=== PATIENT | male | born 1965 | race American Indian/Alaskan Native ===

== ENCOUNTER 2018-06-02 16:47 | Emergency (ER) | payer OTHER ==
[2018-06-02 17:07] VITALS: BP 133/70
[2018-06-02] MEDS ORDERED: MOTRIN PO ONE (20:14)
[2018-06-02] MEDS ORDERED: DECADRON IM ONE (20:14)
--- NOTE | 2018-06-02 21:01 | Emergency Department Report ---
Minor Respiratory - HPI Chief Complaint: Upper Respiratory Infection Stated Complaint: NASAL PROBLEM Time Seen by Provider: 06/02/18 20:11 Duration: 11/2 yr Pain Location: Nose Severity: moderate Minor Respiratory: Yes Rhinorrhea, Yes Able to Tolerate Fluids, No Sore Throat, No Ear Pain, No Cough, No Sick Contacts, No Hemoptysis, No Chest Pain, No Shortness of Breath, No Fever Other History: Patient with a history of allergic rhinitis recurrent sinusitis for past year and have presents bilateral facial sinus pressure taken and rhinitis nocturnal fever Tmax 101 per patient no shortness of breath no no sore throat or ear pain clear nasal drainage is yellow and clear times times ED Review of Systems ROS: Stated complaint: NASAL PROBLEM Other details as noted in HPI Constitutional: denies: chills, fever Eyes: denies: eye pain, eye discharge, vision change ENT: congestion Respiratory: denies: cough, shortness of breath, wheezing Cardiovascular: denies: chest pain, palpitations Endocrine: no symptoms reported Gastrointestinal: denies: abdominal pain, nausea, diarrhea Genitourinary: denies: urgency, dysuria Musculoskeletal: denies: back pain, joint swelling, arthralgia Skin: denies: rash, lesions Neurological: denies: headache, weakness, paresthesias Psychiatric: denies: anxiety, depression Hematological/Lymphatic: denies: easy bleeding, easy bruising ED Past Medical Hx - Past Medical History Previous Medical History?: Yes Hx Diabetes: Yes ("pre-diabetic") - Surgical History Past Surgical History?: No - Social History Smoking Status: Never Smoker Substance Use Type: None - Medications Home Medications: Home Medications Medication Instructions Recorded Confirmed Last Taken Type Amoxicillin/Potassium Clav 1 each PO BID #20 tablet 06/02/18 Unknown Rx [Augmentin 875-125 Tablet] Cetirizine HCl [ZyrTEC] 10 mg PO DAILY #30 capsule 06/02/18 Unknown Rx Ibuprofen 800 mg PO TID PRN #30 tablet 06/02/18 Unknown Rx Oxymetazoline 0.05% [Afrin] 2 spray NS BID PRN #1 bottle 06/02/18 Unknown Rx Minor Respiratory Exam - Exam General: Vital signs noted. No distress. Alert and acting appropriately. HEENT: Yes Moist Mucous Membranes, Yes Rhinorrhea, Yes Frontal Tenderness, Yes Maxillary Tenderness, No Pharyngeal Erythema, No Pharyngeal Exudates, No Conjuctival Injection Ear: Neither TM Bulge, Neither TM Erythema, Neither EAC Pain, Neither EAC Discharge Neck: Yes Supple, No Adenopathy Lungs: Yes Good Air Exchange, No Wheezes, No Ronchi, No Stridor, No Cough, No Labored Respirations, No Retractions, No Use of Accessory Muscles, No Other Abnormal Lung Sounds Heart: Yes Regular, No Murmur Abdomen: Yes Normal Bowel Sounds, No Tenderness, No Peritoneal Signs Skin: No Rash, No Edema Neurologic: Alert and oriented, no deficits. Musculoskeletal: Unremarkable. ED Course Vital Signs 06/02/18 17:04 Temperature 98.3 F Pulse Rate 66 Respiratory 18 Rate Blood Pressure 133/70 O2 Sat by Pulse 97 Oximetry ED Medical Decision Making - Medical Decision Making This is sinusitis and allergic rhinitis which recur sign last antibiotics 1 year ago past ENT visit 3 years ago exam today consistent with sinusitis treated with Augmentin and ibuprofen for pain and Flonase . Will follow with [facility] in 2-3 days , ENT upon appointment. . Verbalize understanding removal signed will be DC'd home in stable condition at this time Critical care attestation.: If time is entered above; I have spent that time in minutes in the direct care of this critically ill patient, excluding procedure time. ED Disposition Clinical Impression: Sinusitis Qualifiers: Sinusitis location: maxillary Chronicity: acute Recurrence: recurrent Qualified Code(s): J01.01 - Acute recurrent maxillary sinusitis Allergic rhinitis Qualifiers: Allergic rhinitis trigger: unspecified Allergic rhinitis seasonality: unspecified Qualified Code(s): J30.9 - Allergic rhinitis, unspecified Disposition: DC-01 TO HOME OR SELFCARE Is pt being admited?: No Does the pt Need Aspirin: No Condition: Good Instructions: Sinusitis (ED), Allergic Rhinitis (ED) Prescriptions: Amoxicillin/Potassium Clav [Augmentin 875-125 Tablet] 1 each PO BID #20 tablet Cetirizine HCl [ZyrTEC] 10 mg PO DAILY #30 capsule Ibuprofen 800 mg PO TID PRN #30 tablet PRN Reason: Pain , Severe (7-10) Oxymetazoline 0.05% [Afrin] 2 spray NS BID PRN #1 bottle PRN Reason: sinus congestion Referrals: PRIMARY CARE,MD [Primary Care Provider] - 3-5 Days Forms: Work/School Release Form(ED) Time of Disposition: 21:05
== END 2018-06-02 21:06 | disposition home or self-care (01) ==
LOC: ED 16:47
DX: J01.01 Acute recurrent maxillary sinusitis (principal); J30.9 Allergic rhinitis, unspecified
CPT/HCPCS: 96372; 99282; J1100